=== PATIENT | female | born 1975 | race Caucasian/White ===

== ENCOUNTER → 2025-04-10 15:49 | Day surgery (SDC) | payer OTHER, SELFPAY | LOC: GI 15:49 | PROVIDERS: ATTENDING PHYSICIAN Internal Medicine Gastroenterology | DX: Z12.11 Encounter for screening for malignant neoplasm of colon (principal); D12.2 Benign neoplasm of ascending colon; K63.5 Polyp of colon; K64.9 Unspecified hemorrhoids; Z86.0100 Personal history of colon polyps, unspecified | CPT/HCPCS: 45385; 45380; 88305 ==